=== PATIENT | male | born 2000 | race Asian ===

== ENCOUNTER 2022-07-13 15:19 | Emergency (ER) | payer BC ==
[~2022-07-13] VITALS: Ht 185.4 cm; Wt 134.3 kg
[2022-07-13 15:32] VITALS: BP_SYST 152
--- NOTE | 2022-07-13 15:40 | NUR ---
PATIENT WENT TO URGENT CARE TODAY D/T HYPERURIA & HYPERDIPSIA X 1 WEEK. PT STATES URGENT [facility] CHECKED BLOOD GLUCOSE AND READING ON METER WAS "HIGH", PATIENT WAS INSTRUCTED TO GO TO NEAREST ER. PT C/O SLIGHT DIZZINESS. STATES ONLY HX IS ASTHMA, FOR WHICH HE TAKES MULTIPLE INHALERS & NO ORAL MEDS. NKA. VSS. 20 GAUGE IV STARTED TO RFA, BLOOD SAMPLES TAKEN TO LAB.
--- NOTE | 2022-07-13 15:42 | NUR ---
MD DR BILLS AT BEDSIDE
[2022-07-13 16:08] LABS: BASOPHILS # (AUTO) 0.1 K/uL (0.0-0.2); EOSINOPHILS # (AUTO) 0.2 K/uL (0.0-0.4); EOSINOPHILS % (AUTO) 1.4 % (0.0-4.0); HEMATOCRIT 49.3 % (36-54); HEMOGLOBIN 16.5 g/dL (14.0-18.0); LYMPHOCYTES # (AUTO) 3.2 K/uL (1.0-5.5); MEAN CORPUSCULAR HEMOGLOBIN 29 pg (27-31); MEAN CORPUSCULAR HGB CONC 33 % (32-36); MEAN CORPUSCULAR VOLUME 87 fL (79.0-98.0); MONOCYTES # (AUTO) 0.8 K/uL (0.0-1.0); MONOCYTES % (AUTO) 6.8 % (1.7-9.3); NEUTROPHILS # (AUTO) 7.2 K/uL (1.8-7.7); NEUTROPHILS % (AUTO) 62.8 % (40.0-70.0); PLATELET COUNT (AUTO) 251 K/uL (130-430); RED BLOOD CELL COUNT(AUTO) 5.69 MIL/uL (4.2-6.2); WHITE BLOOD COUNT (AUTO) 11.5 K/uL (4.8-10.8)
[2022-07-13 16:15] LABS: ACETONE, SERUM SMALL (NEGATIVE)
[2022-07-13 16:29] LABS: ALANINE AMINOTRANSFERASE 78 U/L (12-78); ALBUMIN 3.9 g/dL (3.4-4.8); AMYLASE 32 U/L (0-100); ANION GAP 12 (5-15); CALCIUM 9.3 mg/dL (8.4-11.0); CHLORIDE 88 mmol/L (98-107); GFR AFRICAN AMERICAN 109 mL/min (>90); LIPASE 56 U/L (73-393); TOTAL BILIRUBIN 0.5 mg/dL (0.0-1.0); UREA NITROGEN, BLOOD 16 mg/dL (8-21)
[2022-07-13 16:32] LABS: BILIRUBIN,URINE NEGATIVE (NEGATIVE); CLARITY/URINE CLEAR (CLEAR); COLOR,URINE YELLOW (YELLOW); GLUCOSE,URINE 3+ (NEGATIVE); KETONES,URINE 2+ (NEGATIVE); LEUKOCYTE ESTERASE ,URINE NEGATIVE (NEGATIVE); NITRITE, URINE NEGATIVE (NEGATIVE); PROTEIN URINE TRACE (NEGATIVE); UROBILINOGEN,URINE 0.2 (0.2-1.0)
[2022-07-13 16:39] LABS: GLUCOSE 677 mg/dL (70-99)
[2022-07-13 16:43] LABS: BLOOD, URINE TRACE (NEGATIVE)
[2022-07-13 16:45] LABS: ASPARTATE AMINOTRANSFERASE 14 U/L (10-37)
[2022-07-13 16:45] LABS: BACTERIA,URINE None Seen /HPF (None Seen); MUCUS,URINE None Seen /LPF (None Seen); RBC,URINE 0-3 /HPF (0-3); WBC,URINE NONE SEEN /HPF (0-3)
[2022-07-13] MEDS ORDERED: METF-518 PO (16:48)
[2022-07-13] MEDS ORDERED: NACL 0.9% 2,000 ML IV ONE (17:00)
[2022-07-13] MEDS ORDERED: NACL 0.9% 1,000 ML IV ONE (17:00)
[2022-07-13] MEDS ORDERED: INSULIN REGULAR, HUMAN 10 UNITS/0.1 ML, 3 ML VIAL IVP ONE (17:00)
--- NOTE | 2022-07-13 19:15 | NUR ---
Patient given written and verbal discharge instructions and verbalizes understanding. ER MD DR BILLS discussed with patient the results and treatment provided. Patient in stable condition. ID arm band removed. IV catheter removed intact and dressing applied, no active bleeding. Rx of METFORMIN given. Patient educated on pain management and to follow up with PMD. Pain Scale 0/10. Opportunity for questions provided and answered. Medication side effect fact sheet provided.
[2022-07-13 19:30] VITALS: BP_SYST 135
== END 2022-07-13 19:30 | disposition home or self-care (01) ==
LOC: SED 15:19
DX: R73.9 Hyperglycemia, unspecified (principal); J45.909 Unspecified asthma, uncomplicated; Z79.84 Long term (current) use of oral hypoglycemic drugs
CPT/HCPCS: 99283; 96374; 80053; 81000; 82009; 82150; 82962; 83690; 85025; 36415; 83605; J1815; J7030

== ENCOUNTER 2022-07-14 13:34 | Emergency (ER) | payer BC ==
[~2022-07-14] VITALS: Ht 185.4 cm; Wt 127.0 kg
[~2022-07-14 13:34] MED LIST: METF-518 PO
--- NOTE | 2022-07-14 14:00 | NUR ---
PT TRIAGED AND TAKEN TO BED 8. REPORT GIVEN TO JACK DAWSON. BIBS FOR C/O RECTAL BLEED OF BRIGHT RED BLOOD DURING BOWEL MOVEMENT TODAY. PT HAS C/O BLURRY VISION, PT RECENTLY DIAGNOSED WITH DM 2 YESTERDAY, BS NOW 361. PT UNABLE TO GET NEW PRESCRIPTION OF METFORMIN BECAUSE THE PHARMACY DID NOT RECEIVE PRESCRIPTION.
[2022-07-14 14:02] VITALS: BP_SYST 113
--- NOTE | 2022-07-14 14:14 | NUR ---
ER at bedside examining patient.
--- NOTE | 2022-07-14 14:17 | NUR ---
Patient BIB self for follow up of Elevated BS yesterday. Patient still having elevation of BS, and now reporting blood in stool. BS is 361. Patient a&ox4 and stable. Patient placed in bed on monitor with bed rails up.
--- NOTE | 2022-07-14 14:25 | NUR ---
Lab at bedside now
[2022-07-14 14:43] LABS: BASOPHILS # (AUTO) 0.1 K/uL (0.0-0.2); BASOPHILS % (AUTO) 0.6 % (0.0-2.0); EOSINOPHILS # (AUTO) 0.3 K/uL (0.0-0.4); EOSINOPHILS % (AUTO) 2.4 % (0.0-4.0); HEMATOCRIT 46.2 % (36-54); HEMOGLOBIN 15.8 g/dL (14.0-18.0); LYMPHOCYTES # (AUTO) 3.1 K/uL (1.0-5.5); LYMPHOCYTES % (AUTO) 21.9 % (20.5-51.5); MEAN CORPUSCULAR HEMOGLOBIN 30 pg (27-31); MEAN CORPUSCULAR HGB CONC 34 % (32-36); MEAN CORPUSCULAR VOLUME 87 fL (79.0-98.0); MONOCYTES # (AUTO) 0.7 K/uL (0.0-1.0); MONOCYTES % (AUTO) 5.3 % (1.7-9.3); NEUTROPHILS # (AUTO) 9.9 K/uL (1.8-7.7); NEUTROPHILS % (AUTO) 69.8 % (40.0-70.0); PLATELET COUNT (AUTO) 220 K/uL (130-430); RED BLOOD CELL COUNT(AUTO) 5.31 MIL/uL (4.2-6.2); WHITE BLOOD COUNT (AUTO) 14.2 K/uL (4.8-10.8)
[2022-07-14 14:57] LABS: ANION GAP 17 (5-15); CALCIUM 7.5 mg/dL (8.4-11.0); CHLORIDE 101 mmol/L (98-107); CREATININE 0.87 mg/dL (0.55-1.30); GFR AFRICAN AMERICAN 142 mL/min (>90); GLUCOSE 321 mg/dL (70-99); UREA NITROGEN, BLOOD 13 mg/dL (8-21)
[2022-07-14 14:58] LABS: INR 0.9 (0.80-1.20); PROTHROMBIN TIME 9.3 SECS (9.5-12.5)
[2022-07-14 15:02] LABS: ALBUMIN 3.4 g/dL (3.4-4.8); AMYLASE 38 U/L (0-100); LIPASE 50 U/L (73-393); TOTAL BILIRUBIN 0.6 mg/dL (0.0-1.0)
[2022-07-14 15:11] LABS: ACETONE, SERUM SMALL (NEGATIVE)
[2022-07-14 15:27] LABS: ALANINE AMINOTRANSFERASE 57 U/L (12-78); ASPARTATE AMINOTRANSFERASE 30 U/L (10-37)
[2022-07-14] MEDS ORDERED: INSULIN REGULAR, HUMAN 10 UNITS/0.1 ML, 3 ML VIAL IVP ONE (15:45)
[2022-07-14] MEDS ORDERED: PANTOPRAZOLE SODIUM 80 MG in NS 100 ML IV ONE (15:45)
[2022-07-14] MEDS ORDERED: NACL 0.9% 2,000 ML IV ONE (15:45)
--- NOTE | 2022-07-14 16:34 | NUR ---
IV fluids started per order. IV site started on left wrist. 20g. Report given to Brad SANTIAGO, to do two IVP medications.
--- NOTE | 2022-07-14 16:35 | NUR ---
BS 301
[2022-07-14] MEDS ORDERED: PANTOPRAZOLE SODIUM 40 MG/VIAL (PROTONIX) ONE (16:39)
--- NOTE | 2022-07-14 17:20 | NUR ---
BS 235
--- NOTE | 2022-07-14 17:23 | NUR ---
Patient given written and verbal discharge instructions and verbalizes understanding. ER MD Miller discussed with patient the results and treatment provided. Patient in stable condition. ID arm band removed. IV catheter removed intact and dressing applied, no active bleeding. Opportunity for questions provided and answered. Medication side effect fact sheet provided. Patient stable, a&ox4 and walked out on his own.
[2022-07-14 18:23] VITALS: BP_SYST 137
== END 2022-07-14 17:23 | disposition home or self-care (01) ==
LOC: SED 13:34
DX: K29.70 Gastritis, unspecified, without bleeding (principal); K62.5 Hemorrhage of anus and rectum; R73.9 Hyperglycemia, unspecified; R30.0 Dysuria; R10.13 Epigastric pain; J45.909 Unspecified asthma, uncomplicated; Z79.899 Other long term (current) drug therapy
CPT/HCPCS: 99285; 74176; 96374; 96361; 96375; 80053; 82009; 82150; 82962; 83690; 85025; 85610; 85730; 86886; 86900; 86901; 84484; 36415; 76376; 83605; C9113; J7030; J1815